=== PATIENT | male | born 1960 | race Caucasian/White ===

== ENCOUNTER 2018-03-03 05:52 | Outpatient (CLI) | payer MEDICARE ==
[~2018-03-03] VITALS: Ht 165.1 cm; Wt 90.7 kg
[2018-03-03] MEDS ORDERED: LAMO100T PO (14:28)
[2018-03-03] MEDS ORDERED: TAMS0.4C2 PO (14:28)
[2018-03-03] MEDS ORDERED: MELO15TA39 PO (14:28)
[2018-03-03] MEDS ORDERED: QUIN10TA14 PO (14:28)
[2018-03-03] MEDS ORDERED: FINA5TAB6 PO (14:28)
[2018-03-03] MEDS ORDERED: PSYL3.4P5 PO (14:28)
[2018-03-03] MEDS ORDERED: LEVE10006 PO (14:28)
[2018-03-03] MEDS ORDERED: SIMV40TA4 PO (14:28)
== END 2018-03-03 14:30 | disposition home or self-care (01) ==
LOC: PREOP 05:52
PROVIDERS: ATTEND Surgery
DX: Z01.818 Encounter for other preprocedural examination (principal)

== ENCOUNTER 2018-03-10 06:42 | Day surgery (SDC) | payer MEDICARE ==
[~2018-03-10] VITALS: Ht 165.1 cm; Wt 90.7 kg
[~2018-03-10 06:42] MED LIST: FINA5TAB6 PO; LAMO100T PO; LEVE10006 PO; MELO15TA39 PO; PSYL3.4P5 PO; QUIN10TA14 PO; SIMV40TA4 PO; TAMS0.4C2 PO
[2018-03-10] MEDS ORDERED: NS IV 500 ML 500 ML ONE (07:09)
[2018-03-10] MEDS ORDERED: MIDAZOLAM 2 MG/2 ML (VERSED) VIAL ONE ×3 (07:19)
[2018-03-10] MEDS ORDERED: fentaNYL INJECTION 100 MCG/2 ML AMP ONE (07:20)
[2018-03-10] MEDS ORDERED: NS IV 500 ML 500 ML IV PRN (07:28)
[2018-03-10] MEDS ORDERED: MIDAZOLAM 2 MG/2 ML (VERSED) VIAL IVP ONE (07:30)
[2018-03-10] MEDS ORDERED: fentaNYL INJECTION 100 MCG/2 ML AMP IVP ONE (07:30)
[2018-03-10 07:33] VITALS: BP 151/89
--- NOTE | 2018-03-10 08:31 | Conscious Sedation/ASA ---
Conscious Sedation Pre-Proced Time 08:31 ASA Score 2 For ASA 3 and 4: Consider anesthesia and medical clearance. Also, for patients with a history of failed moderate sedation consider anesthesia. Airway Lungs Heart ASA score ASA 1: a normal healthy patient ASA 2: a patient with a mild systemic disease (mid diabetes, controlled hypertension, obesity ASA 3: a patient with a severe systemic disease that limits activity (angina , COPD, prior Myocardial infarction) ASA 4: a patient with an incapacitating disease that is a constant threat to life (CHF, renal failure) ASA 5: a moribund patient not expected to survive 24 hrs. (ruptured aneurysm) ASA 6: a declared brain patient whose organs are being harvested. For emergent operations, add the letter E after the classification Mallampati Classification Grade 1 Sedation Plan Discussed options with patient/fam The patient is an appropriate candidate to undergo the planned procedure, sedation, and anesthesia. The patient immediately re-assessed prior to indication. BLAIR WOMACK MD Mar 10, 2018 08:31
--- NOTE | 2018-03-10 08:31 | History & Physicial ---
History of Present Illness History of Present Illness Reason for visit/HPI to undergo screening colonoscopy. Reports a family history of colon cancer in his maternal uncle. Date of Admission 03/10/18 Date Seen by a Provider: Mar 10, 2018 Time Seen by a Provider: 08:29 I consulted on this patient on 03/10/18 08:29 Attending Physician Blair Womack MD Admitting Physician Parviz Aguirre MD Consult Allergies and Home Medications Allergies Coded Allergies: No Known Drug Allergies (Unverified , 03/03/18) Home Medications Finasteride 5 Mg Tablet, 5 MG PO DAILY, (Reported) Lamotrigine 100 Mg Tablet, 100 MG PO DAILY, (Reported) Levetiracetam 1,000 Mg Tablet, 1,000 MG PO BID, (Reported) Meloxicam 15 Mg Tablet, 15 MG PO DAILY, (Reported) Psyllium Husk/Aspartame 3.4 Gm Powd.pack, 3.4 GM PO DAILY, (Reported) Quinapril HCl 10 Mg Tablet, 10 MG PO DAILY, (Reported) Simvastatin 40 Mg Tablet, 40 MG PO HS, (Reported) Tamsulosin HCl 0.4 Mg Cap.er.24h, 0.4 MG PO DAILY, (Reported) Patient Home Medication List Home Medication List Reviewed: Yes Past Ehvwdiy-Xgunvr-Oriwid Hx Patient Social History Marrital Status: single Employed/Student: retired Alcohol Use: Denies Use Recreational Drug Use: No Smoking Status: Never a Smoker Recent Foreign Travel: No Contact w/other who traveled: No Recent Hopitalizations: No Immunizations Up To Date Date of Influenza Vaccine: Dec 30, 2017 Seasonal Allergies Seasonal Allergies: No Cardiovascular Yes Hypertension Neurological No Seizure Disorder Genitourinary Yes Benign Prostatic Hyperpl Musculoskeletal Yes Degenerate Disk Disease, Arthritis HEENT HEENT Disorders: Glaucoma Psychosocial Behavioral Health Disorders: Depression Review of Systems Constitutional: no symptoms reported EENTM: no symptoms reported Respiratory: no symptoms reported Cardiovascular: no symptoms reported Genitourinary: no symptoms reported Musculoskeletal: no symptoms reported Skin: no symptoms reported Psychiatric/Neurological: No Symptoms Reported Physical Exam Vital Signs Vital Signs - First Documented 03/10/18 07:33 Temp 98.6 Pulse 91 Resp 20 B/P (MAP) 151/89 (109) Pulse Ox 96 O2 Delivery Room Air Capillary Refill : Height, Weight, BMI Height: 5'5.00" Weight: 200lbs. 0.0oz. [id number]; 33.3 BMI Method: General Appearance: No Apparent Distress Neck: Normal Inspection Respiratory: Lungs Clear Cardiovascular: Regular Rate, Rhythm Gastrointestinal: Non Tender, Soft Rectal: Deferred Extremity: Normal Inspection Neurologic/Psychiatric: Alert, Oriented x3 Skin: Warm/Dry Assessment/Plan Assessment and Plan gentleman with a family history of colon cancer. 4. Colonoscopy. Details, post polypectomy bleeding, iatrogenic perforation, recommendation for further screening etc. reviewed thoroughly. Seems to understand and is willing to proceed. Admission Diagnosis Admission Status: Other (Outpt Proc) BLAIR WOMACK MD Mar 10, 2018 08:31
--- NOTE | 2018-03-10 08:52 | Endo Procedure Record ---
Endo Procedure Report Date of Procedure Last Colonoscopy: Yes Mar 10, 2018 Surgeon (s) BLAIR WOMACK MD Post Procedure/Op Diagnosis sigmoid diverticulosis Procedure Performed colonoscopy to cecum Description of Procedure Anesthesia Type: Conscious Sedation Specimen(s) collected/removed None Description of the Procedure Indication for the procedure: This gentleman came in for screening colonoscopy. He reported a family history of colon cancer in his maternal uncle. Informed consent was obtained after reviewing the procedure in detail. Description of the procedure: He was placed in left lateral decubitus position and his vital signs are monitored. Conscious sedation was achieved using Versed and fentanyl. Digital rectal examination was unremarkable. The colonoscope was then introduced into rectum and advanced all the way up to the cecum. The quality of bowel preparation was excellent. The scope was then withdrawn slowly and the mucosa examined in a systematic fashion. Finding: Very few sigmoid diverticulae. He tolerated the procedure well and was taken back to the nursing area in a stable condition. Impression: Screening colonoscopy. No polyps. Positive family history. Recommend repeating in 5 years. Copy Copies To 1: LUIS HYDE MD Copies To 2: CHELA MARTINEZ MD, XAVIER M MD Mar 10, 2018 08:52
--- NOTE | 2018-03-10 08:54 | Discharge Inst-Simple/Standard ---
Discharge Inst-Standard Discharge Medications New, Converted or Re-Newed RX: Other Patient Instructions/Follow Up Plan of Care/Instructions/FU: repeat colonoscopy in 5 years Activity as Tolerated: Yes Discharge Diet: No Restrictions BLAIR WOMACK MD Mar 10, 2018 08:54
[2018-03-10 09:05] VITALS: BP 123/69
[2018-03-10 09:30] VITALS: BP 128/70
[2018-03-10 11:06] VITALS: BP 128/70
== END 2018-03-10 09:40 | disposition home or self-care (01) ==
LOC: ENDO 06:42
PROVIDERS: ATTEND Surgery
DX: Z12.11 Encounter for screening for malignant neoplasm of colon (principal); Z80.0 Family history of malignant neoplasm of digestive organs; K57.30 Diverticulosis of large intestine without perforation or abscess without bleeding; I10 Essential (primary) hypertension; G40.909 Epilepsy, unspecified, not intractable, without status epilepticus; F32.9 Major depressive disorder, single episode, unspecified; Z79.899 Other long term (current) drug therapy

== ENCOUNTER → 2019-08-25 | Outpatient (CLI) | payer MEDICARE ==
[~2019-08-25] MED LIST changes: -LAMO100T PO; +LAMO100T5 PO; +SIMV40TA25 PO; -SIMV40TA4 PO
--- NOTE | 2019-08-25 16:53 | Diagnostic Imaging Report ---
INDICATION: Right shoulder pain. TIME OF EXAM: 02:41 p.m. FINDINGS: Multiple views of the right shoulder were obtained. Glenohumeral and acromioclavicular alignment is normal. No fracture or dislocation is seen. Acromiohumeral space is normal. IMPRESSION: No acute bony abnormality is detected. Dictated by: Dictated on workstation # [id number]
== END ==
LOC: RAD FS 14:21
PROVIDERS: ATTEND Nurse Practitioner
DX: M25.511 Pain in right shoulder (principal); M25.512 Pain in left shoulder
CPT/HCPCS: 73030

== ENCOUNTER → 2019-08-28 | Outpatient (CLI) | payer MEDICARE ==
--- NOTE | 2019-08-28 12:37 | Diagnostic Imaging Report ---
PROCEDURE: MRI right joint upper extremity without contrast. TECHNIQUE: Multiplanar, multisequence non contrast-enhanced MRI of the right upper extremity was accomplished. INDICATION: Right shoulder pain. EXAMINATION: MRI of the right shoulder without contrast dated 08/28/2019. FINDINGS: The subscapularis tendon is intact, long head of the biceps tendon lies in the bicipital groove but is prominent perhaps due to chronic tendinosis, no associated edema seen. The supraspinatus and infraspinatus tendons are diffusely torn with retraction to the level of the clavicular joint. Suprasellar subluxation of the humeral head in relation to the glenoid is noted with loss of the subacromial joint space. Biceps tendon anchor is intact, the labrum grossly intact on this noncontrast examination. There is acromioclavicular arthritic change. Small amount of fluid in the subdeltoid subacromial bursa and within the glenohumeral joint space also noted. There is diffuse marked atrophy and fatty infiltration throughout the supraspinatus and infraspinatus muscles. Visualized axilla unremarkable IMPRESSION: 1. Full thickness tears of the entire supraspinatus and infraspinatus tendons with retraction and muscular atrophy as above. 2. 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 3. Degenerative findings of the acromioclavicular joint with other findings as noted above. Dictated by: Dictated on workstation # [id number]
== END ==
LOC: RAD 09:43
PROVIDERS: ATTEND Nurse Practitioner
DX: M75.121 Complete rotator cuff tear or rupture of right shoulder, not specified as traumatic (principal); M67.813 Other specified disorders of tendon, right shoulder; M19.011 Primary osteoarthritis, right shoulder
CPT/HCPCS: 73221

== ENCOUNTER 2020-04-07 18:30 | Emergency (ER) | payer MEDICARE, OTHER ==
[~2020-04-07] VITALS: Ht 165 cm; Wt 100.0 kg
[2020-04-07] MEDS ORDERED: KETOROLAC 30 MG/ML VIAL IVP STA (18:46)
[2020-04-07] MEDS ORDERED: ORPHENADRINE 60 MG/2 ML (NORFLEX) AMP (ED ONLY) IVP STA (18:46)
--- NOTE | 2020-04-07 18:54 | ED Fall/Injury ---
General Chief Complaint: Back Problems Stated Complaint: FALL Nursing Triage Note: PT WAS WALKING HIS DOG AND THE DOG TOOK OFF AND IT MADE THE PT FALL ONTO THE GROUND. PT REPORTS HE HAS CHRONIC LOW BACK PAIN FROM DEG DISC. Source: patient History of Present Illness Date Seen by Provider: Apr 07, 2020 Time Seen by Provider: 18:32 Initial Comments 59 yo male presents with complaints of acute exacerbation of low back pain after he fell at home. He was walking his dog and then accidentally tripped on the dog leash. He fell backwards and landed on his back. He already has chronic low back pain from degenerative disc disease. He states he was having some pain in the left hip and going down his leg. He was unable to get up due to the pain and had to call EMS to get assistance. EMS gave him fentanyl IV and brought him to the emergency department to be evaluated. He denies hitting his head or losing consciousness. He has no loss of bowel or bladder control. Allergies and Home Medications Allergies Coded Allergies: No Known Drug Allergies (Unverified , 03/03/18) Home Medications Baclofen 10 Mg Tablet, 10 MG PO BID PRN for MUSCLE SPASMS Prescribed by: CHERISE AYERS on 04/07/202041 Finasteride 5 Mg Tablet, 5 MG PO DAILY, (Reported) Hydrocodone/Acetaminophen 1 Each Tablet, 1 EACH PO Q6H PRN for PAIN-SEVERE (8- 10) Prescribed by: CHERISE AYERS on 04/07/202042 Lamotrigine 100 Mg Tablet, 100 MG PO DAILY, (Reported) Levetiracetam 1,000 Mg Tablet, 1,000 MG PO BID, (Reported) Meloxicam 15 Mg Tablet, 15 MG PO DAILY, (Reported) Psyllium Husk/Aspartame 3.4 Gm Powd.pack, 3.4 GM PO DAILY, (Reported) Quinapril HCl 10 Mg Tablet, 10 MG PO DAILY, (Reported) Simvastatin 40 Mg Tablet, 40 MG PO HS, (Reported) Tamsulosin HCl 0.4 Mg Cap.er.24h, 0.4 MG PO DAILY, (Reported) Patient Home Medication List Home Medication List Reviewed: Yes Review of Systems Review of Systems Constitutional: No chills, No fever Eyes: No Symptoms Reported Ears, Nose, Mouth, Throat: no symptoms reported Respiratory: no symptoms reported Cardiovascular: no symptoms reported Gastrointestinal: no symptoms reported Genitourinary: no symptoms reported Musculoskeletal: see HPI Skin: No change in color (no bruising noted to his back) Psychiatric/Neurological: Denies Headache, Denies Numbness, Denies Paresthesia Past Voebghl-Gizedv-Nduqgc Hx Past Med/Social Hx: Reviewed Nursing Past Med/Soc Hx Patient Social History Alcohol Use: Denies Use Recreational Drug Use: No Smoking Status: Former Smoker 2nd Hand Smoke Exposure: No Recent Foreign Travel: No Contact w/Someone Who Travel: No Recent Infectious Disease Expo: No Recent Hopitalizations: No Physical Abuse: No Sexual Abuse: No Mistreated: No Fear: No Immunizations Up To Date Date of Influenza Vaccine: Dec 30, 2017 Seasonal Allergies Seasonal Allergies: No Past Medical History Surgeries: Yes (jaw sx, ) Respiratory: Yes Sleep Apnea Cardiac: Yes Hypertension Neurological: No Seizure Disorder Genitourinary: Yes Benign Prostatic Hyperpl Gastrointestinal: No Musculoskeletal: Yes Degenerate Disk Disease, Arthritis Endocrine: No Glaucoma Cancer: No Psychosocial: Yes Depression Integumentary: No Blood Disorders: No Physical Exam Vital Signs Vital Signs - First Documented 04/07/20 18:35 Temp 37.1 Pulse 92 Resp 18 B/P (MAP) 140/71 (94) Pulse Ox 98 O2 Delivery Room Air Capillary Refill : Less Than 3 Seconds Height, Weight, BMI Height: 5'5.00" Weight: 200lbs. 0.0oz. 90.547606rt; 36.00 BMI Method: General Appearance: WD/WN, mild distress HEENT: PERRL/EOMI Cardiovascular: normal peripheral pulses, regular rate, rhythm Respiratory: chest non-tender, lungs clear, normal breath sounds Gastrointestinal: normal bowel sounds, non tender, soft, no pulsatile mass Back: no CVA tenderness, vertebral tenderness (lumbar area and increased with left straight leg raise) Extremities: normal range of motion, normal capillary refill Neurologic/Psychiatric: certified ophthalmic technician II-XII nml as tested, alert, oriented x 3 Skin: normal color, warm/dry Butler Coma Score Best Eye Response: (4) Open Spontaneously Best Verbal Response: (5) Oriented Best Motor Response: (6) Obeys Commands Kip Total: 15 Progress/Results/Core Measures Results/Orders My Orders Orders - CHERISE AYERS MD Ketorolac Injection (Toradol Injection) (04/07/20 18:46) Orphenadrine Inj (Ed Only) (Norflex Inje (04/07/20 18:46) Ct Lumbar Spine Wo (04/07/20 18:47) Ct Pelvis Wo (04/07/20 18:47) Rx-Hydrocodone/Apap 5-325 Mg (Rx-Vicodin (04/07/20 20:45) Vital Signs/I&O 04/07/20 18:35 Temp 37.1 Pulse 92 Resp 18 B/P (MAP) 140/71 (94) Pulse Ox 98 O2 Delivery Room Air Blood Pressure Mean: 94 Progress Progress Note #1: Progress Note Toradol and Norflex to help with pain and muscle spasms. Obtain CT scan of his lumbar spine and pelvis to evaluate his acute on chronic lumbar back pain as well as hip pain going down his leg since the fall. Progress Note #2: Time: 20:30 Progress Note symptoms improved with treatment. CT scans did not show any acute fracture or dislocation. Discharged with a few hydrocodone and prescription for additional meds if needed. Baclofen for muscle spasms if needed. alternate with ice and heat. Check back with the clinic for continued concerns and problems. Diagnostic Imaging Diagonstic Imaging: CT Plain Films/CT/US/NM/MRI: pelvis Comments [facility], [place] NAME: FARHEEN OLIVARES MED REC#: [id number] PT STATUS: REG ER : 1960 PHYSICIAN: CHERISE AYERS MD ADMIT DATE: 04/07/20/ER FS Draft Date of Exam:04/07/20 CT PELVIS WO PROCEDURE: CT pelvis without contrast. TECHNIQUE: Multiple contiguous axial images were obtained through the pelvis without the use of intravenous contrast. Sagittal and coronal reformations were performed. Auto Exposure Controls were utilized during the CT exam to meet ALARA standards for radiation dose reduction. INDICATION: Fall. Pelvic pain. FINDINGS: Femoral heads are normal articulation bilaterally with the acetabula. No fractures are demonstrated. SI joints are symmetrical. No fracture noted of the pelvis. The muscles and tissue planes about the hips appear normal. No evidence of pelvic hematomas. There are no pelvic masses. The bladder is nondistended. IMPRESSION: No acute abnormalities demonstrated within the pelvis. Dictated on workstation # [id number] Dict: 04/07/202012 Trans: 04/07/202030 CV [id number] Interpreted by: MISAEL CASTILLO MD Electronically signed by: Marybethgonskaelyn Imaging: CT Plain Films/CT/US/NM/MRI: other (lumbar spine) Comments [facility], [place] NAME: FARHEEN OLIVARES [facility] REC#: [id number] PT STATUS: REG ER : 1960 PHYSICIAN: CHERISE AYERS MD ADMIT DATE: 04/07/20/ER FS Draft Date of Exam:04/07/20 CT LUMBAR SPINE WO PROCEDURE: CT lumbar spine without contrast. TECHNIQUE: Multiple contiguous axial images were obtained through the lumbar spine without the use of intravenous contrast. Sagittal and coronal reformations were then performed. Auto Exposure Controls were utilized during the CT exam to meet ALARA standards for radiation dose reduction. INDICATION: Fall with back pain. FINDINGS: There is mild S type scoliosis with degenerative disc disease moderate severe in nature centered from L1 through L3. There is loss of disc space with hypertrophic endplate changes. No evidence of central canal stenosis. There is mild to moderate encroachment upon the lateral recesses bilaterally at the L1-L2 more severe on the left. Facets show good alignment without pars defect. There are no fractures demonstrated. No spondylolisthesis. The paraspinal soft tissues appear normal. IMPRESSION: 1. Scoliosis with rather advanced degenerative disc and facet disease. No acute abnormalities noted. No evidence of high-grade spinal or foraminal stenosis. Dictated on workstation # [id number] Dict: 04/07/202011 Trans: 04/07/202029 CV [id number] Interpreted by: MISAEL CASTILLO MD Electronically signed by: Departure Impression Primary Impression: Acute exacerbation of chronic low back pain Additional Impressions: Fall Qualified Codes: W19.XXXA - Unspecified fall, initial encounter Radicular pain of left lower extremity Low back pain radiating to left leg Disposition: 01 HOME, SELF-CARE Condition: Improved Departure-Patient Inst. Decision time for Depature: 20:43 Referrals: LUIS HYDE MD (PCP/Family) Primary Care Physician Patient Instructions: Low Back Pain ED, Radiculopathy (DC) Add. Discharge Instructions: Continue your regular medicines and if needed check with clinic if pain and symptoms not improving in next few days. Alternate ice and heat to your low back All discharge instructions reviewed with patient and/or family. Voiced understanding. Scripts Baclofen (Baclofen) 10 Mg Tablet 10 MG PO BID PRN for MUSCLE SPASMS for 10 Days, #20 TAB 0 Refills Prov: CHERISE AYERS MD 04/07/20 Hydrocodone/Acetaminophen (Hydrocodone-Acetamin 5-325 mg) 1 Each Tablet 1 EACH PO Q6H PRN for PAIN-SEVERE (8-10) for 4 Days, #16 TAB 0 Refills Prov: CHERISE AYERS MD 04/07/20 Images Torso/Trunk 1 - Tenderness (tender to palpation over lumbar spine. no step offs or crepitus) CHERISE AYERS MD Apr 07, 2020 18:54
--- NOTE | 2020-04-07 20:30 | Diagnostic Imaging Report ---
PROCEDURE: CT lumbar spine without contrast. TECHNIQUE: Multiple contiguous axial images were obtained through the lumbar spine without the use of intravenous contrast. Sagittal and coronal reformations were then performed. Auto Exposure Controls were utilized during the CT exam to meet ALARA standards for radiation dose reduction. INDICATION: Fall with back pain. FINDINGS: There is mild S type scoliosis with degenerative disc disease moderate severe in nature centered from L1 through L3. There is loss of disc space with hypertrophic endplate changes. No evidence of central canal stenosis. There is mild to moderate encroachment upon the lateral recesses bilaterally at the L1-L2 more severe on the left. Facets show good alignment without pars defect. There are no fractures demonstrated. No spondylolisthesis. The paraspinal soft tissues appear normal. IMPRESSION: 1. Scoliosis with rather advanced degenerative disc and facet disease. No acute abnormalities noted. No evidence of high-grade spinal or foraminal stenosis. Dictated by: Dictated on workstation # [id number]
--- NOTE | 2020-04-07 20:31 | Diagnostic Imaging Report ---
PROCEDURE: CT pelvis without contrast. TECHNIQUE: Multiple contiguous axial images were obtained through the pelvis without the use of intravenous contrast. Sagittal and coronal reformations were performed. Auto Exposure Controls were utilized during the CT exam to meet ALARA standards for radiation dose reduction. INDICATION: Fall. Pelvic pain. FINDINGS: Femoral heads are normal articulation bilaterally with the acetabula. No fractures are demonstrated. SI joints are symmetrical. No fracture noted of the pelvis. The muscles and tissue planes about the hips appear normal. No evidence of pelvic hematomas. There are no pelvic masses. The bladder is nondistended. IMPRESSION: No acute abnormalities demonstrated within the pelvis. Dictated by: Dictated on workstation # [id number]
[2020-04-07] MEDS ORDERED: BACL10TA PO (20:42)
[2020-04-07] MEDS ORDERED: ACHD5005 PO (20:42)
[2020-04-07] MEDS ORDERED: RX-HYDROCODONE/APAP 5/325 MG #4 TAB PK PO PRN (20:45)
[2020-04-07 20:54] VITALS: BP 125/65
== END 2020-04-07 20:54 | disposition home or self-care (01) ==
LOC: EDUNIT# 18:30 → ER FS 18:31
DX: M54.5 Low back pain (principal); M25.552 Pain in left hip; G89.29 Other chronic pain; I10 Essential (primary) hypertension; G40.909 Epilepsy, unspecified, not intractable, without status epilepticus; N40.0 Benign prostatic hyperplasia without lower urinary tract symptoms; Z87.891 Personal history of nicotine dependence; W01.0XXA Fall on same level from slipping, tripping and stumbling without subsequent striking against object, initial encounter
CPT/HCPCS: 72131; 72192

== ENCOUNTER → 2020-09-13 | Outpatient (CLI) | payer MEDICARE, OTHER ==
[~2020-09-13] VITALS: Ht 165 cm; Wt 95.0 kg
[~2020-09-13] MED LIST changes: +ACHD5005 PO; +BACL10TA PO; +REGADENOSON 0.4 MG/5 ML SYR (LEXISCAN) IV ONE
[2020-09-13] MEDS: CATHETER FLUSH 10 ML SYR IV PRN ×2 (11:37→13:11)
[2020-09-13 13:09] VITALS: BP 127/76
[2020-09-13 13:18] VITALS: BP 155/104
--- NOTE | 2020-09-13 18:11 | STRESS TEST ---
DATE OF SERVICE: 09/13/2020 RESTING AND POST REGADENOSON TECHNETIUM-99M TETROFOSMIN SPECT CT IMAGING ORDERING PHYSICIAN: Dr. Owens. PRIMARY PHYSICIAN: Dr. Aguirre. CLINICAL DIAGNOSIS: Shortness of breath. Baseline images were carried out after injection of 10.42 mCi of technetium-99m Tetrofosmin. This was followed by 0.4 mg regadenoson and 33 mCi of technetium-99m Tetrofosmin for stress imaging. The electrocardiogram showed sinus rhythm at baseline. It did not change significantly with regadenoson infusion. Review of images at rest and following stress indicates a small to moderate sized inferolateral perfusion defect. This appears to be transient. Gated images show normal global left ventricular systolic function with normal regional wall motion. Left ventricular ejection fraction is calculated to be 83%. Left ventricular end diastolic volume is 65 mL. TID is absent (1.03). CONCLUSIONS: 1. This study is suggestive of a small to moderate amount of inferolateral ischemia. 2. Normal regional wall function. 3. Normal global left ventricular systolic function with a calculated ejection fraction of 83%. Job ID: [id number] DocumentID: [id number] Dictated Date: 09/13/2020 16:19:49 Duplicating Machine Mechanic Date: 09/13/2020 18:10:43 Dictated By: JAIMIE OWENS MD, MA, FACP, FACC,
== END ==
LOC: CARD 11:30
PROVIDERS: ATTEND Internal Medicine Cardiovascular Disease
DX: I51.7 Cardiomegaly (principal)
CPT/HCPCS: 78452; 93017; 93306; A9502; 93225; 93226

== ENCOUNTER 2020-09-20 15:00 | Day surgery (SDC) | payer MEDICARE, OTHER ==
[~2020-09-20] VITALS: Ht 165 cm; Wt 91.0 kg
[2020-09-20 13:09] VITALS: BP 140/71
[2020-09-20 13:22] LABS: HEMATOCRIT 48 % (40-54); HEMOGLOBIN 16.6 g/dL (13.3-17.7); MEAN CORPUSCULAR HEMOGLOBIN 33 pg (25-34); MEAN CORPUSCULAR HGB CONC 35 g/dL (32-36); MEAN CORPUSCULAR VOLUME 94 fL (80-99); MEAN PLATELET VOLUME 10.5 fL (9.0-12.2); PLATELET COUNT 152 10^3/uL (130-400); WHITE BLOOD COUNT 7.1 10^3/uL (4.3-11.0)
[2020-09-20 13:35] LABS: INR 1.1 (0.8-1.4); PROTHROMBIN TIME PATIENT 14.4 SEC (12.2-14.7)
[2020-09-20 13:36] VITALS: BP 136/79
[2020-09-20 13:46] LABS: ALANINE AMINOTRANSFERASE 37 U/L (0-55); ALBUMIN 4.1 GM/DL (3.2-4.5); ALKALINE PHOSPHATASE 95 U/L (40-136); BILIRUBIN,TOTAL 1.1 MG/DL (0.1-1.0); BUN/CREATININE RATIO 20; CALCIUM 10.1 MG/DL (8.5-10.1); CARBON DIOXIDE 24 MMOL/L (21-32); CHLORIDE 112 MMOL/L (98-107); CHOLESTEROL 145 MG/DL (< 200); CREATININE SERUM 0.82 MG/DL (0.60-1.30); GFR ESTIMATED > 60; GLUCOSE 101 MG/DL (70-105); HDL CHOLESTEROL 45 MG/DL (40-60); POTASSIUM 4.2 MMOL/L (3.6-5.0); SODIUM 144 MMOL/L (135-145); TOTAL PROTEIN 7.1 GM/DL (6.4-8.2); TRIGLYCERIDES 62 MG/DL (<150); VLDL CHOLESTEROL 12 MG/DL (5-40)
[~2020-09-20 15:00] MED LIST changes: +ASPI-1238 PO; +LAMO150T4 PO; +LATA2.5D19 OU; +LEVE500T6 PO; +LIDOCAINE 1% INJ 20 ML 20 ML VIAL INJ ONE; +NS IV 1000 ML 1,000 ML IV SCH; -REGADENOSON 0.4 MG/5 ML SYR (LEXISCAN) IV ONE; +TMSL.4C PO
[2020-09-20] MEDS ORDERED: fentaNYL INJ 100 MCG/2 ML AMP ONE (15:05)
[2020-09-20] MEDS ORDERED: MIDAZOLAM 5 MG/5 ML (VERSED) VIAL ONE (15:05)
--- NOTE | 2020-09-20 16:59 | CARDIAC CATHETERIZATION ---
DATE OF SERVICE: 09/20/2020 CARDIAC CATHETERIZATION REPORT INDICATION FOR PROCEDURE: The patient is a 59-year-old gentleman, who has multiple coronary artery disease risk factors and who has exertional shortness of breath and palpitations. A myocardial perfusion imaging study was indicative of inferolateral ischemia. Accordingly, cardiac catheterization was carried out after having obtained an informed consent. DESCRIPTION OF PROCEDURE: She was brought to the cardiac catheterization laboratory in a fasting state. Right groin was prepared and draped in the usual sterile fashion. Lidocaine 1% was used for local anesthesia. Modified Seldinger technique was used to advance a 5-Wallisian sheath in the right femoral artery. A small, contained dissection was noted at the tip of the sheath. This was at the site of a marked tortuosity in the iliofemoral system. There did not appear to be any impairment of blood flow. The sheath was pulled back slightly away, from the dissection and all subsequent exchanges were made over an exchange length wire. We used a 6-Wallisian JL4 catheter for left coronary angiography. We used a 6-Wallisian JR4 catheter for right coronary angiography. We used a pigtail catheter for left heart catheterization and left ventricular angiography. The pigtail was then pulled back to the level just above the aortoiliac bifurcation and bilateral aortoiliac angiography was performed down to the level of the proximal part of the superficial femoral arteries on both sides. This was to make sure that there was no obstruction to blood flow at the level of the small, contained dissection in the tortuous iliofemoral system on the right, none was found. Manual pressure was used to achieve hemostasis following sheath removal. He tolerated the procedure well. HEMODYNAMICS: Left ventricular end-diastolic pressure following coronary angiography was 13 mmHg. There was no significant pressure gradient on pullback across the aortic valve. Ascending aortic pressure was 111/70 with a mean of 89 mmHg. CORONARY ANGIOGRAPHY: Left main coronary artery, left anterior descending artery, left circumflex artery, right coronary artery does not exhibit any angiographically significant coronary artery disease. LEFT VENTRICULAR ANGIOGRAPHY: Left ventricular angiography was carried out in the right anterior oblique projection. Global left ventricular systolic function is well preserved. Left ventricular ejection fraction is estimated to be 50% to 55%. BILATERAL LEG ARTERY ANGIOGRAPHY: No significant lower abdominal aortic aneurysm or dissection is seen. The iliofemoral system is very tortuous on both sides. A small dissection is present in the distal right external iliac artery and there is no obstruction to flow. There does not appear to be any significant stenosis of the iliofemoral system on either side, to the extent visualized. CONCLUSIONS: 1. No angiographically significant coronary artery disease. 2. Left ventricular end-diastolic pressure is 13 mmHg. 3. Normal global left ventricular systolic function with ejection fraction of 50% to 55%. 4. Small, contained dissection in the tortuous right iliofemoral system that does not appear to be of any hemodynamic significance and is not resulting in any impairment of flow. DISCUSSION AND RECOMMENDATIONS: Risk factor modification was reviewed and recommended. The small contained dissection is expected to heal on its own. Close outpatient followup is advised. Job ID: [id number] DocumentID: [id number] Dictated Date: 09/20/2020 16:18:58 Buncher Hand Date: 09/20/2020 16:58:13 Dictated By: JAIMIE GOSS MD, MA, FACP, FACC,
--- NOTE | 2020-09-20 17:11 | Discharge Inst-Cardiology ---
Discharge Inst-Cardiac Discharge Medications Continued Medications: Aspirin (Aspirin EC) 81 Mg Tablet.dr 81 MG PO HS, TAB Finasteride (Finasteride) 5 Mg Tablet 5 MG PO DAILY, TAB Lamotrigine (Lamotrigine) 150 Mg Tablet 150 MG PO BID, TAB Latanoprost (Xalatan) 2.5 Ml Drops 1 DROP OU HS, DROPS Levetiracetam (Levetiracetam) 500 Mg Tablet 1500 MG PO BID, TAB TAKES 3 (500MG) TABS Quinapril HCl (Quinapril HCl) 10 Mg Tablet 10 MG PO HS, TAB Simvastatin (Simvastatin) 40 Mg Tablet 40 MG PO HS, TAB Tamsulosin HCl (Flomax) 0.4 Mg Cap 0.4 MG PO BID, CAP JAIMIE GOSS MD [facility] CCDS Sep 20, 2020 17:11
--- NOTE | 2020-09-20 17:12 | Discharge Inst-Post CATH ---
Discharge Inst-CATH/EP Post Cardiac Cath/EP D/C Inst Follow Up/Plan F/u with Dr Owens on 09/26/20 ACTIVITY * Go Home directly and rest. * Limit activity of the leg (or wrist if it was used) for 7 days including aerobics, swimming, jogging, bicycling, etc. * Restrict stair-climbing for 7 days if possible, if not, climb up with your n on-cath leg, then bring together on the same step. * Avoid lifting, pushing, pulling or excessive movement of the affected ex tremity for 7 days. * Customary sexual activity may be resumed after 2 days-use caution not to use a position that strains or causes pain to the affected extremity. * No driving for 24 hours. * NO SMOKING. * Avoid straining for bowel movements for 7 days. * Gentle walking on level ground is allowed. * Returning to work will depend on the type of procedure and the results. Your doctor will discuss this with you. CALL YOUR DOCTOR FOR ANY OF THE FOLLOWING: *If bleeding from the puncture site occurs- Apply gentle pressure to site with clean cloth and call your doctor or EMS. * If a knot or lump forms under the skin, increases in size, or causes pain. * If bruising appears to be worsening or moving further down your leg instead of disappearing. * Temperature above 101 F. CARE OF YOUR GROIN INCISION; * Bruising or purple discoloration of the skin near the puncture site is common. * You may shower only, no bathtub bathing for 5 days. Be careful to avoid slipping as your leg may feel stiff. * If a closure device was used on your femoral artery, please see the attached guide regarding care of the device and your leg. * Leave dressing on FOR 24 hours. CARE OF YOUR WRIST INCISION; * Bruising or purple discoloration of the skin near the puncture site is common. * You may shower. * DO NOT submerge wrist. * Leave dressing on FOR 24 hours. JAIMIE OWENS MD FACP FAC CCDS Sep 20, 2020 17:12
[2020-09-20] MEDS ORDERED: NS IV 1000 ML 1,000 ML IV SCH (17:15)
[2020-09-20] MEDS ORDERED: PATIENT MAY USE OWN MEDS, ALL PO SCH (17:15)
== END 2020-09-20 19:55 | disposition home or self-care (01) ==
LOC: CATH 15:00 → CSD 16:23 → CATH 19:55
PROVIDERS: ATTEND Internal Medicine Cardiovascular Disease
DX: R06.02 Shortness of breath (principal); R00.2 Palpitations; R06.09 Other forms of dyspnea; I10 Essential (primary) hypertension; E78.2 Mixed hyperlipidemia; G47.33 Obstructive sleep apnea (adult) (pediatric); Z79.82 Long term (current) use of aspirin; Z79.899 Other long term (current) drug therapy
CPT/HCPCS: 75716; 80053; 80061; 85027; 85610; 85730; 87081; 93458; C1894; 36415

== ENCOUNTER → 2021-12-11 | Outpatient (CLI) | payer MEDICARE, OTHER ==
[~2021-12-11] MED LIST changes: -LIDOCAINE 1% INJ 20 ML 20 ML VIAL INJ ONE; -NS IV 1000 ML 1,000 ML IV SCH; -QUIN10TA14 PO; +QUIN10TA31 PO
--- NOTE | 2021-12-11 10:05 | Diagnostic Imaging Report ---
EXAMINATION: CHEST (PA AND LATERAL). CLINICAL INDICATION: 61-year-old male, cough. COMPARISON: None. FINDINGS: The heart size and mediastinal contours are unremarkable. There is no identified pneumothorax. There is no pleural effusion. There is no identified focal airspace consolidation. There are bilateral acromioclavicular degenerative changes. There are mild degenerative changes of the spine. IMPRESSION: No identified acute cardiopulmonary abnormality. Dictated by: Dictated on workstation # [id number]
== END ==
LOC: RAD FS 09:32
PROVIDERS: ATTEND Family Medicine
DX: R05.1 Acute cough (principal)
CPT/HCPCS: 71046

== ENCOUNTER 2022-01-24 16:05 | Emergency (ER) | payer MEDICARE, OTHER ==
[~2022-01-24] VITALS: Ht 165 cm; Wt 90.0 kg
[2022-01-24] MEDS ORDERED: LACTATED RINGERS 1,000 ML IV STA (16:08)
--- NOTE | 2022-01-24 16:08 | ED General ---
General Stated Complaint: DIZZINESS History of Present Illness Date Seen by Provider: Jan 24, 2022 Time Seen by Provider: 16:07 Initial Comments 61-year-old male presents with dizziness. Patient reports that started this afternoon. Patient states if he bends over and stands up that is when he gets dizzy. He does not get dizzy with head movement. He has no ear ringing. No chest pain, shortness of breath fevers chills or nausea or vomiting. Patient with no recent illness. No ear pain. No recent medication change or new medicines no other systemic complaints. Allergies and Home Medications Allergies Coded Allergies: No Known Drug Allergies (Unverified , 03/03/18) Patient Home Medication List Home Medication List Reviewed: Yes Aspirin (Aspirin EC) 81 Mg Tablet.dr, 81 MG PO HS, (Reported) Entered as Reported by: SPRING ABREU on 09/20/20 134 Finasteride (Finasteride) 5 Mg Tablet, 5 MG PO DAILY, (Reported) Entered as Reported by: JOSELINE LI on 03/03/18 142 Lamotrigine (Lamotrigine) 150 Mg Tablet, 150 MG PO BID, (Reported) Entered as Reported by: SPRING ABREU on 09/20/20 134 Latanoprost (Xalatan) 2.5 Ml Drops, 1 DROP OU HS, (Reported) Entered as Reported by: SPRING ABREU on 09/20/20 134 Levetiracetam (Levetiracetam) 500 Mg Tablet, 1,500 MG PO BID, (Reported) Entered as Reported by: SPRING ABREU on 09/20/20 134 Quinapril HCl (Quinapril HCl) 10 Mg Tablet, 10 MG PO HS, (Reported) Entered as Reported by: JOSELINE LI on 03/03/18 142 Simvastatin (Simvastatin) 40 Mg Tablet, 40 MG PO HS, (Reported) Entered as Reported by: JOSELINE LI on 03/03/18 142 Tamsulosin HCl (Flomax) 0.4 Mg Cap, 0.4 MG PO BID, (Reported) Entered as Reported by: SPRING ABREU on 09/20/20 134 Review of Systems Review of Systems Constitutional: see HPI; No chills; dizziness; No fever EENTM: no symptoms reported Respiratory: no symptoms reported Cardiovascular: no symptoms reported Gastrointestinal: no symptoms reported Genitourinary: no symptoms reported Musculoskeletal: no symptoms reported Skin: no symptoms reported Psychiatric/Neurological: No Symptoms Reported Hematologic/Lymphatic: No Symptoms Reported Physical Exam Vital Signs Vital Signs - First Documented 01/24/22 01/24/22 16:20 16:27 Temp 36.6 Pulse 88 91 106 Resp 18 B/P (MAP) 135/63 (87) 123/65 (84) 124/60 (81) Pulse Ox 96 Capillary Refill : Height, Weight, BMI Height: '" Weight: lbs. oz. kg; BMI Method: General Appearance: No Apparent Distress, WD/WN Eyes: Bilateral Eye Normal Inspection, Bilateral Eye PERRL, Bilateral Eye EOMI HEENT: Moist Mucous Membranes Neck: Non Tender, Supple Respiratory: Lungs Clear, Normal Breath Sounds Cardiovascular: Regular Rate, Rhythm, No Edema Gastrointestinal: Non Tender, Soft Extremity: Normal Capillary Refill, Normal Inspection, Normal Range of Motion Neurologic/Psychiatric: Alert, Oriented x3, No Motor/Sensory Deficits, Normal Mood/Affect, lyric writer II-XII Norm as Tested Skin: Normal Color, Warm/Dry Progress/Results/Core Measures Suspected Sepsis SIRS Temperature: Pulse: Respiratory Rate: Laboratory Tests 01/24/22 16:14: White Blood Count 7.6 Blood Pressure / Mean: Laboratory Tests 01/24/22 16:14: Creatinine 0.71, Platelet Count 135, Total Bilirubin 0.5 Results/Orders Lab Results Laboratory Tests Test 01/24/22 16:14 01/24/22 17:15 Range/Units White Blood Count 7.6 4.3-11.0 10^3/uL Red Blood Count 4.82 4.30-5.52 10^6/uL Hemoglobin 15.4 13.3-17.7 g/dL Hematocrit 44 40-54 % Mean Corpuscular Volume 91 80-99 fL Mean Corpuscular Hemoglobin 32 25-34 pg Mean Corpuscular Hemoglobin Concent 35 32-36 g/dL Red Cell Distribution Width 11.6 10.0-14.5 % Platelet Count 135 130-400 10^3/uL Mean Platelet Volume 9.9 9.0-12.2 fL Immature Granulocyte % (Auto) 1 % Neutrophils (%) (Auto) 66 42-75 % Lymphocytes (%) (Auto) 18 12-44 % Monocytes (%) (Auto) 12 0-12 % Eosinophils (%) (Auto) 3 0-10 % Basophils (%) (Auto) 1 0-10 % Neutrophils # (Auto) 5.0 1.8-7.8 10^3/uL Lymphocytes # (Auto) 1.3 1.0-4.0 10^3/uL Monocytes # (Auto) 0.9 0.0-1.0 10^3/uL Eosinophils # (Auto) 0.2 0.0-0.3 10^3/uL Basophils # (Auto) 0.0 0.0-0.1 10^3/uL Immature Granulocyte # (Auto) 0.1 0.0-0.1 10^3/uL Sodium Level 138 135-145 MMOL/L Potassium Level 3.8 3.6-5.0 MMOL/L Chloride Level 107 98-107 MMOL/L Carbon Dioxide Level 21 21-32 MMOL/L Anion Gap 10 5-14 MMOL/L Blood Urea Nitrogen 19 H 7-18 MG/DL Creatinine 0.71 0.60-1.30 MG/DL Estimat Glomerular Filtration Rate 103 BUN/Creatinine Ratio 27 Glucose Level 134 H 70-105 MG/DL Calcium Level 9.6 8.5-10.1 MG/DL Corrected Calcium 9.6 8.5-10.1 MG/DL Magnesium Level 2.0 1.6-2.4 MG/DL Total Bilirubin 0.5 0.1-1.0 MG/DL Aspartate Amino Transf (AST/SGOT) 23 5-34 U/L Alanine Aminotransferase (ALT/SGPT) 24 0-55 U/L Alkaline Phosphatase 103 40-136 U/L C-Reactive Protein < 0.30 <0.50 MG/DL Total Protein 6.2 L 6.4-8.2 GM/DL Albumin 4.0 3.2-4.5 GM/DL Urine Color YELLOW Urine Clarity CLEAR Urine pH 6.0 5-9 Urine Specific [place] <=1.005 1.016-1.022 Urine Protein NEGATIVE NEGATIVE Urine Glucose (UA) NEGATIVE NEGATIVE Urine Ketones NEGATIVE NEGATIVE Urine Nitrite NEGATIVE NEGATIVE Urine Bilirubin NEGATIVE NEGATIVE Urine Urobilinogen 0.2 < = 1.0 MG/DL Urine Leukocyte Esterase NEGATIVE NEGATIVE Urine RBC (Auto) NEGATIVE NEGATIVE Urine RBC NONE /HPF Urine WBC RARE /HPF Urine Squamous Epithelial Cells NONE /HPF Urine Crystals NONE /LPF Urine Bacteria NEGATIVE /HPF Urine Casts NONE /LPF Urine Mucus NEGATIVE /LPF Urine Culture Indicated NO My Orders Orders - KEVIN RIDDLE DO Cbc With Automated Diff (01/24/22 16:08) Comprehensive Metabolic Panel (01/24/22 16:08) Magnesium (01/24/22 16:08) Ua Culture If Indicated (01/24/22 16:08) Crp Fs (01/24/22 16:08) Ekg Tracing (01/24/22 16:08) Monitor-Rhythm Ecg Trace Only (01/24/22 16:08) Lactated Ringers (Lr 1000 Ml Iv Solution (01/24/22 16:08) Orthostatic Vital Signs (Adult (01/24/22 16:08) Vital Signs/I&O 01/24/22 01/24/22 16:20 16:27 Temp 36.6 Pulse 88 88 91 106 Resp 18 B/P (MAP) 135/63 (87) 118/60 (79) 123/65 (84) 124/60 (81) Pulse Ox 96 Capillary Refill : Progress Note : Progress Note Patient feeling better following IV fluids. Patient has no significant acute findings on labs or urinalysis. Patient stable and will be discharged home. He should follow-up with a primary care provider for recheck in a couple days. Departure Impression Primary Impression: Dizziness Disposition: 01 HOME, SELF-CARE Condition: Stable Departure-Patient Inst. Patient Instructions: Dizziness, Nonvertigo, (DC), Dealing with Dizziness from the Drugs You Take Add. Discharge Instructions: Follow-up with your primary care provider in a couple days if symptoms return and with any other concerns. KEVIN RIDDLE DO Jan 24, 2022 16:08
[2022-01-24 16:20] VITALS: BP_SYST 123; BP_SYST 124; BP_SYST 135; BP_DIAS 60; BP_DIAS 63; BP_DIAS 65
[2022-01-24 16:24] LABS: BASOPHILS % (AUTO) 1 % (0-10); EOSINOPHILS # (AUTO) 0.2 10^3/uL (0.0-0.3); EOSINOPHILS % (AUTO) 3 % (0-10); HEMATOCRIT 44 % (40-54); HEMOGLOBIN 15.4 g/dL (13.3-17.7); LYMPHOCYTES # (AUTO) 1.3 10^3/uL (1.0-4.0); LYMPHOCYTES % (AUTO) 18 % (12-44); MEAN CORPUSCULAR HEMOGLOBIN 32 pg (25-34); MEAN CORPUSCULAR HGB CONC 35 g/dL (32-36); MEAN CORPUSCULAR VOLUME 91 fL (80-99); MEAN PLATELET VOLUME 9.9 fL (9.0-12.2); MONOCYTES # (AUTO) 0.9 10^3/uL (0.0-1.0); MONOCYTES % (AUTO) 12 % (0-12); NEUTROPHILS % (AUTO) 66 % (42-75); PLATELET COUNT 135 10^3/uL (130-400); WHITE BLOOD COUNT 7.6 10^3/uL (4.3-11.0)
[2022-01-24 16:27] VITALS: BP 118/60
[2022-01-24 16:44] LABS: ALANINE AMINOTRANSFERASE 24 U/L (0-55); ALKALINE PHOSPHATASE 103 U/L (40-136); BILIRUBIN,TOTAL 0.5 MG/DL (0.1-1.0); BUN/CREATININE RATIO 27; CALCIUM 9.6 MG/DL (8.5-10.1); CARBON DIOXIDE 21 MMOL/L (21-32); CHLORIDE 107 MMOL/L (98-107); CREATININE SERUM 0.71 MG/DL (0.60-1.30); GFR ESTIMATED 103; GLUCOSE 134 MG/DL (70-105); POTASSIUM 3.8 MMOL/L (3.6-5.0); SODIUM 138 MMOL/L (135-145); TOTAL PROTEIN 6.2 GM/DL (6.4-8.2)
[2022-01-24 17:19] LABS: BILIRUBIN,URINE NEGATIVE (NEGATIVE); CLARITY,URINE CLEAR; COLOR,URINE YELLOW; GLUCOSE, URINE (UA) NEGATIVE (NEGATIVE); KETONES,URINE NEGATIVE (NEGATIVE); LEUKOCYTE ESTERASE ,URINE NEGATIVE (NEGATIVE); NITRITE,URINE NEGATIVE (NEGATIVE); PROTEIN,URINE NEGATIVE (NEGATIVE)
[2022-01-24 17:24] LABS: BACTERIA,URINE NEGATIVE /HPF; WBC,URINE RARE /HPF
== END 2022-01-24 17:50 | disposition home or self-care (01) ==
LOC: EDUNIT# 16:05 → ER FS 16:06
DX: R42 Dizziness and giddiness (principal)
CPT/HCPCS: 36415; 80053; 81000; 83735; 85025; 86141; 93005

== ENCOUNTER → 2022-07-12 | Outpatient (CLI) | payer MEDICARE, OTHER ==
[~2022-07-12] VITALS: Ht 165 cm; Wt 91.0 kg
[~2022-07-12] MED LIST changes: +CATHETER FLUSH 10 ML SYR IVP PRN; +REGADENOSON 0.4 MG/5 ML SYR (LEXISCAN) IV ONE
[2022-07-12 08:01] VITALS: BP 142/69
--- NOTE | 2022-07-16 23:25 | STRESS TEST ---
DATE OF SERVICE: 07/12/2022 RESTING AND POST REGADENOSON TECHNETIUM-99M TETROFOSMIN SPECT CT IMAGING ORDERING PHYSICIAN: Fany Sharma APRN PRIMARY PHYSICIAN: Dr. Aguirre. OTHER PHYSICIAN: Dr. Goss. CLINICAL DIAGNOSIS: Paroxysmal atrial fibrillation. Baseline images were carried out after injection of 11 mCi of technetium-99m tetrofosmin. This was followed by 0.4 mg regadenoson and 33 mCi of technetium-99m tetrofosmin for stress imaging. The electrocardiogram showed sinus rhythm at baseline. It did not change significantly with the regadenoson infusion. The patient tolerated the procedure well. Review of images at rest and following stress does not indicate any significant perfusion defects consistent with myocardial ischemia or infarction. Gated images show normal global left ventricular systolic function with normal regional wall motion. Left ventricular ejection fraction is calculated to be 75%. Job ID: [id number] DocumentID: [id number] Dictated Date: 07/16/2022 17:22:44 Infection Preventionist Date: 07/16/2022 23:24:00 Dictated By: JAIMIE GOSS MD; DAVIDSON; FACP; FACC;
== END ==
LOC: CARD 06:56
PROVIDERS: ATTEND Nurse Practitioner Family
DX: I48.0 Paroxysmal atrial fibrillation (principal)
CPT/HCPCS: 78452; 93017; A9502